=== PATIENT | female | born 1965 | race Caucasian/White ===

== ENCOUNTER 2016-06-21 20:45 | Emergency (ER) | payer OTHER ==
[2016-06-21 20:56] VITALS: BP 118/90; PULSE 95; RESP 18; TEMP 99.4; O2SAT 96
--- NOTE | 2016-06-21 21:32 | UCPHY ---
H & P Time Seen by Provider: 06/21/16 21:05 Patient Type: New HPI/ROS: CHIEF COMPLAINT: Back pain. HISTORY OF PRESENT ILLNESS: The patient is a 50-year-old female presenting with left sided back pain that started this morning. Her pain has been worsening throughout the day, recalls no specific injury or overuse that might have precipitated this pain. She reports associated pain with deep inhalation, though is not short of breath. Her last dose of Advil 400 mg, was 2.5 hours ago. 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 The patient is not on any hormonal medications. She denies lower extremity pain or swelling. No hypercoagulable syndromes in the family. No prior history of DVT/PE. No surgery. The patient additionally complains of right eye redness.She has left eye itchiness and discharge. She states it feels scratchy. The patient attributes her symptoms to pink eye. This is been going on for 1 week, slightly worse today. The discharge is clear and runny and is not going down the corner of her outside portion of the eye REVIEW OF SYSTEMS: Constitutional: No fever, no chills. Eyes: Left eye discharge and itchiness ENT: No sore throat. Cardiovascular: No chest pain, no palpitations. Respiratory: Pain with deep inhalation. No chest pain. Gastrointestinal: No nausea vomiting or diarrhea. No abdominal pain. Genitourinary: No flank pain Musculoskeletal: Back pain as noted above. Skin: No rashes. Neurological: No headache. 10 point ROS otherwise negative. Past Medical/Surgical History: [place]. Pre-diabetes. Social History: Cigarette smoker. Smoking Status: Current every day smoker Physical Exam: General Appearance: Alert, no distress. Afebrile. Normal phonation. No respiratory distress. Moves a little stiffly so as to get in the stretcher and lay on her stomach for the exam Eyes: Pupils are unequal, per baseline. Right eye with conjunctival erythema, cornea is clear. ENT, Mouth: Mucous membranes moist. Pharynx without erythema or exudate. TM Clear. Neck: No adenopathy. Supple. No JVD. Trachea in midline. Respiratory: There are no retractions, lungs are clear to auscultation. Cardiovascular: Regular rate and rhythm, no murmur. Abdomen: Soft and nontender, no masses, bowel sounds normal. Neurological: Ox3. No motor weakness. Sensation intact. Gait nl. Skin: Warm and dry, no rashes. Back: She has stiff movement nance. She guards my fingers to the area at approximately T5 laterally between the spinous processes and the tip of the scapula. However this is not indurated nor is it tender nor there is a spot of irritation nor is there a muscle spasm Musculoskeletal: No joint swelling. No palpable back pain, no induration or spasms, nontender to the touch. Extremities: No edema. Homans sign negative. No cords. Psychiatric: Normal affect. Patient is oriented X 3, there is no agitation. Constitutional: Initial Vital Signs Temperature (C) 37.4 C 06/21/16 20:49 Heart Rate 95 06/21/16 20:49 Respiratory Rate 18 06/21/16 20:49 Blood Pressure 118/90 H 06/21/16 20:49 O2 Sat (%) 96 06/21/16 20:49 O2 Delivery Mode Room Air Allergies/Adverse Reactions: Sulfa (Sulfonamide Antibiotics) Allergy (Verified 06/21/16 20:56) Home Medications: Medication Instructions Recorded ARMOUR THYROID 06/21/16 Atorvastatin Calcium 06/21/16 Levothyroxine 06/21/16 MINOCYCLINE HCL 06/21/16 Polymyxin B Sulf/Trimethoprim 10 ml OP Q4 #0 drops 06/21/16 [Polymyxin B-Tmp Eye Drops] Venlafaxine HCl 06/21/16 Medical Decision Making - Diagnostics Imaging: Imaging Impressions Chest X-Ray 06/21/16 21:37 Impression: No acute findings in the chest. Films reviewed by me on PACs ED Course/Re-evaluation: The patient is a 50-year-old female presenting with acute left upper back pain. The patient reports no trauma to the area. On exam she has no palpable tenderness. She reports associated pain with inhalation. Plan for chest x-ray and d-dimer. Due to her age she is unable to be performed by way of I perc rule. She is low risk Wells criteria with a negative D-dimer thus effectively ruling out pulmonary embolus The patient additionally complains of left eye redness, itchiness, and drainage. Plan to send patient home with antibiotic eye drops in case symptoms do not improve within a few days. They are clinical signs of viral conjunctivitis at this time I have but no pre tragus nodes to suggest a definitive diagnosis of adenovirus Differential Diagnosis: Differential diagnosis includes but is not limited to the following: ACS, myocardial infarction, pneumothorax, pleurisy, pulmonary embolus, aortic dissection, anxiety, muscle strain. - Data Points Laboratory Results: 06/21/16 22:40 D-Dimer < 0.27 ug/mLFEU ug/mLFEU (0.00-0.50) Departure - Departure Disposition: Home, Routine, Self-Care Clinical Impression: Muscle strain Thoracic myofascial strain Qualifiers: Encounter type: initial encounter Qualified Code(s): S29.019A - Strain of muscle and tendon of unspecified wall of thorax, initial encounter Condition: Good Instructions: Muscle Strain (ED) Additional Instructions: Adult Pain Control: Tylenol and Advil works well together the combination: Advil 600 3 times daily Tylenol extended-release 1300 mg 3 times daily Aspercreme patches 1 applied for 12 hours only maximum and 24. Works well for the pain as well If your left eye does not improve in a few days, begin using antibiotic eye drops. Referrals: AMAIRANI RODRIGUES [Primary Care Provider] - As per Instructions Prescriptions: Polymyxin B Sulf/Trimethoprim [Polymyxin B-Tmp Eye Drops] 10 ml OP Q4 #0 drops - PQRS PQRS Measurement: NA Report Scribed for: Elias Xavier Report Scribed by: Coty Vail Date of Report: 06/21/16 Time of Report: 21:34
== END 2016-06-21 23:41 | disposition home or self-care (01) ==
LOC: CED 20:45
DX: S29.019A Strain of muscle and tendon of unspecified wall of thorax, initial encounter (principal); H57.9 Unspecified disorder of eye and adnexa; F17.210 Nicotine dependence, cigarettes, uncomplicated; X58.XXXA Exposure to other specified factors, initial encounter
CPT/HCPCS: 71020-PO; 85378-PO; 99204-PO; G0463-PO